=== PATIENT | male | born 2000 | race Caucasian/White ===

== ENCOUNTER 2023-05-28 19:23 | Emergency (ER) | payer BC, SELFPAY ==
[2023-05-28 19:33] VITALS: BP 144/77; PULSE 74; RESP 18; TEMP 36.9; O2SAT 100
--- NOTE | 2023-05-28 19:38 | ED.EXTPRO ---
HPI - Extremity Problem General Chief complaint: Extremity Problem,Nontraumatic Stated complaint: Skin Problem/Left Arm Time Seen by Provider: 05/28/23 19:36 Source: patient and RN notes reviewed Mode of arrival: ambulatory Limitations: dementia History of Present Illness HPI Narrative: 23-year-old male presents with concern for painful cyst on his left arm. Reports he has had a lump on his left forearm for about a year, but today it became slightly red and painful. He denies any drainage from the area. Denies any injury or trauma. Denies fever, aches, chills, sweats Complaint: extremity pain Related Data Allergies Allergy/AdvReac Type Severity Reaction Status Date / Time No Known Allergies Allergy Verified 05/28/23 19:38 Review of Systems Review of Systems: CONSTITUTIONAL: Denies malaise, chills, sweats, or fever. EYES: Denies redness, or discharge. ENT: Denies rhinorrhea, congestion, swollen lips, swollen tongue CARDIOVASCULAR: Denies chest pain, palpitations, or edema. RESPIRATORY: Denies cough or dyspnea. GASTROINTESTINAL: Denies abdominal pain, nausea, vomiting SKIN: Reports a painful lump to his left forearm. Denies purulent drainage, vesicles, bullae, numbness, pain beyond proportion MUSCULOSKELETAL: Denies joint pain or myalgia. NEUROLOGIC: Denies headache. All systems reviewed & are unremarkable except as noted in HPI and below PMFSH Comments At time of signature, agree with nursing past medical, surgical, social and family history. There is no relevant family history pertinent to the presenting complaint Exam Narrative: GENERAL: Well-appearing, well-nourished, and in no acute distress. HEAD: Normocephalic, atraumatic. EYES: PERRLA, conjunctivae clear ENT: Mucous membranes moist. NECK: Supple. No lymphadenopathy CHEST: Clear to auscultation. No respiratory distress. HEART: Regular rate and rhythm. SKIN: Warm, dry. Approximately a 2.5 cm raised firm mobile nodule noted to the left forearm with slight erythema to the skin, no fluctuation noted. No vesicles, bullae, necrosis, ecchymosis, crepitus noted. NEURO: Alert and oriented x3. PSYCH: Normal mood and affect Course Course Emergency Course: Patient is aware of diagnosis, understands and agrees to treatment plan. Anticipatory guidance given. Patient agrees to follow-up as directed and is aware of reasons to seek care at the emergency department. Portions of this record may have been created with voice recognition software Level of Care: Express Care Visit Vital Signs Vital signs: Vital Signs Temperature 98.4 F 05/28/23 19:33 Pulse Rate 74 05/28/23 19:33 Respiratory Rate 18 05/28/23 19:33 Blood Pressure 144/77 H 05/28/23 19:33 Pulse Oximetry 100 05/28/23 19:33 Oxygen Delivery Room Air 05/28/23 19:33 Temperature 98.4 F 05/28/23 19:33 Pulse Rate 74 05/28/23 19:33 Respiratory Rate 18 05/28/23 19:33 Blood Pressure 144/77 H 05/28/23 19:33 Pulse Oximetry 100 05/28/23 19:33 Oxygen Delivery Room Air 05/28/23 19:33 Reviewed. MDM - Extremity (Nontraumatic) MDM Narrative Medical decision making narrative: Exam findings show no acute concerns or changes; patient is non-toxic appearing and is in no distress. Patient is appropriate for outpatient treatment and follow-up. Differential Diagnosis Differential diagnosis: Likely cellulitis and other (Abscess) Critical Care Time Critical Care Time Critical Care Time: No Discharge Plan Discharge Clinical Impression: Cyst Patient Disposition: Home, Self-Care Condition: Stable Instructions: Antibiotic Form, Cyst (ED) Additional Instructions: Please follow up with your Primary Care Doctor within 48-72 hours - call for an appointment. Rest and elevate affected area; apply moist heat 3-4 times daily for 10-15 minutes. Take Motrin 600mg every 8 hours with food for pain. Please take Antibiotics as directed. If you experience any worsening re
== END 2023-05-28 19:49 | disposition home or self-care (01) ==
PROVIDERS: Emergency Provider Nurse Practitioner
DX: L72.9 Follicular cyst of the skin and subcutaneous tissue, unspecified (principal)
CPT/HCPCS: 99203; G0463

== ENCOUNTER 2024-02-02 15:34 | Emergency (ER) | payer SELFPAY ==
[2024-02-02 15:42] VITALS: BP 125/67; PULSE 96; RESP 16; TEMP 37.5; O2SAT 99
--- NOTE | 2024-02-02 16:55 | ED_ITS ---
HPI - URI/Sore Throat General Chief Complaint: Upper Respiratory Infection Stated Complaint: cough Time Seen by Provider: 02/02/24 16:49 Source: patient and RN notes reviewed Mode of arrival: ambulatory Limitations: no limitations History of Present Illness HPI Narrative: Patient presents today complaining of a one-week history of cough, shortness breath, fatigue, decreased appetite, sore throat, nasal congestion, rhinorrhea. Reports fever at the onset of symptoms but none since then. He has tried Mucinex, NyQuil, and cough drops without much relief. To negative home COVID test. Related Data Allergies Allergy/AdvReac Type Severity Reaction Status Date / Time No Known Allergies Allergy Verified 02/02/24 15:43 Review of Systems Review of Systems: CONSTITUTIONAL: Denies body aches, fever, chills, or sweats.+ fatigue EYES: Denies visual changes, redness, or discharge. ENT: Denies otalgia.+ rhinorrhea, congestion, sore throat CARDIOVASCULAR: Denies chest pain, palpitations, or edema. RESPIRATORY: + cough, shortness of breath GASTROINTESTINAL: Denies abdominal pain, nausea, vomiting, or diarrhea.+ decreased appetite GENITOURINARY: Denies dysuria or hematuria. SKIN: Denies rash, itching, or wounds. MUSCULOSKELETAL: Denies back pain, joint pain, or myalgia. NEUROLOGIC: Denies headache, numbness, tingling, or weakness. PSYCH: Denies depression or anxiety. PMFSH Comments At time of signature, I have reviewed and agree with nursing past medical, surgical, social and family history unless otherwise noted. Please see nursing chart for further information. There is no relevant family history pertinent to the presenting complaint Exam Narrative: GENERAL: Mildly ill-appearing, well-nourished, and in no acute distress. HEAD: Normocephalic, atraumatic. EYES: EOMI. No redness or drainage. Conjunctivae normal. ENT: Mucous membranes pink and moist. Nares clear. No rhinorrhea. TMs normal bilaterally. Throat normal. Uvula midline. NECK: Normal AROM. Supple. No lymphadenopathy. CHEST: No respiratory distress. Clear to auscultation. Difficulty taking slow deep breath for exam. Unable to speak in complete sentences. HEART: Regular rate and rhythm. No murmur appreciated. EXTREMITIES: Normal range of motion. No edema. SKIN: Warm, dry, no rash. Capillary refill normal. Normal skin turgor. NEURO: No focal deficits. Alert and oriented x3. Gait steady. PSYCH: Normal affect. No signs of depression or anxiety. Course Course Level of Care: Express Care Visit Vital Signs Vital signs: Vital Signs Temperature 99.5 F 02/02/24 15:42 Pulse Rate 96 02/02/24 15:42 Respiratory Rate 16 02/02/24 15:42 Blood Pressure 125/67 02/02/24 15:42 Pulse Oximetry 99 02/02/24 15:42 Oxygen Delivery Room Air 02/02/24 15:42 Temperature 99.5 F 02/02/24 15:42 Pulse Rate 102 H 02/02/24 17:23 Respiratory Rate 24 H 02/02/24 17:23 Blood Pressure 125/67 02/02/24 15:42 Pulse Oximetry 99 02/02/24 17:23 Oxygen Delivery Room Air 02/02/24 15:42 Reviewed MDM - URI/Sore Throat MDM Narrative Medical decision making narrative: Influenza and strep negative. Symptoms likely viral in etiology. Discussed [id number] medication use and duration of illness. He will be started on prednisone and Tessalon Perles for his symptoms. Anticipatory guidance given. Differential Diagnosis Differential diagnosis: Likely upper respiratory infection, viral infection, bronchitis, influenza and other (Strep throat) Lab Data Attestation: I reviewed the patient's lab results. Labs: Lab Results 02/02/24 Range/Units 16:55 POC Influenza A Ag Negative (Negative) POC Influenza B Ag Negative (Negative) POC Grp A Strep Screen Negative (Negative) Critical Care Time Critical Care Time Critical Care Time: No Discharge Plan Discharge Clinical Impression: Upper respiratory infection Qualifiers: URI type: unspecified URI Qualified Code(s): J06.9 - Acute upper respiratory infection, unspecified Patient Disposition: Home, Self-Care Condition: Stable Instructions: Upper Respiratory Infection (DC) Additional Instructions: Please take the prednisone and Tessalon Perles as directed. Your influenza and strep tests are negative today. Your Symptoms are likely due to a viral illness, which is not treated with antibiotics. Virus symptoms can last for up to 7-10days. Take Tylenol or ibuprofen for pain or fever. Rest and stay hydrated. Follow up with your PCP in 3-4 days if symptoms are not improving. Go to the ER immediately if you develop shortness of breath, difficulty sw allowing, or any other concerning symptoms. Your blood pressure was elevated above 120/80 today at Urgent Care. This puts you above the threshold for follow up. Please schedule a followup visit with your personal physician as soon as possible, for further evaluation and treatment. Even blood pressure exceeding 120/80 may indicate pre-hypertension. Patient Language: Romanian Prescriptions: New benzonatate 200 mg capsule 200 mg PO TID PRN (Reason: cough) Qty: 20 0RF prednisone 20 mg tablet 40 mg PO DAILY 5 Days Qty: 10 0RF Follow-up/Referrals: PHYSICIAN,HUMAN SERVICES ASSISTANT [Primary Care Provider] - Time of Disposition: 17:31
[2024-02-02] MEDS: ALBUTEROL SULFATE NEB 2.5 MG/3 ML INH INHALATION (17:01)
[2024-02-02] MEDS: IPRATROPIUM BR 0.02% INH SOLN 0.5 MG/2.5 ML VIAL INHALATION (17:02)
[2024-02-02 17:17] LABS: EDINFLUASCREEN Negative (Negative); EDINFLUBSCREEN Negative (Negative); EDSTREPNEGPOS1 Negative (Negative)
--- NOTE | 2024-02-02 17:17 | PC.NURSE ---
PT half way through breathing tx checked on pt found pt not doing treatment. PT complaining feels like whole body shaking and hands cramping. Instructed pt to slow breathing and informed Mariah HILL. Mariah to room to evaluate pt.
[2024-02-02 17:23] VITALS: PULSE 102; RESP 24; O2SAT 99
== END 2024-02-02 17:34 | disposition home or self-care (01) ==
PROVIDERS: Emergency Provider Nurse Practitioner
DX: J06.9 Acute upper respiratory infection, unspecified (principal)
CPT/HCPCS: 87804; 87880; 99213; G0463